=== PATIENT | female | born 1940 | race Caucasian/White ===

== ENCOUNTER 2018-11-27 15:13 | Outpatient (CLI) | payer MEDICARE, OTHER ==
[~2018-11-27 15:13] MED LIST: ASPI-1265 PO; ATOR10TA70 PO; BENA20TA82 PO; BUSP5TAB3 PO; CARV-50 PO; OMEP40CA37 PO; SYN0.088T PO
== END 2018-11-27 23:59 | disposition home or self-care (01) ==
LOC: VAS 15:13
PROVIDERS: ATTEND Family Medicine
DX: I82.432 Acute embolism and thrombosis of left popliteal vein (principal); I82.442 Acute embolism and thrombosis of left tibial vein; I82.492 Acute embolism and thrombosis of other specified deep vein of left lower extremity; I10 Essential (primary) hypertension
CPT/HCPCS: 93971

== ENCOUNTER 2022-05-19 11:30 | Outpatient (CLI) | payer MEDICARE, OTHER ==
[~2022-05-19 11:30] MED LIST changes: +OMEP40CA21 PO; -OMEP40CA37 PO
== END 2022-05-19 23:59 | disposition home or self-care (01) ==
LOC: VAS 11:30
PROVIDERS: ATTEND Family Medicine
DX: I82.563 Chronic embolism and thrombosis of calf muscular vein, bilateral (principal); M79.89 Other specified soft tissue disorders; R05.1 Acute cough
CPT/HCPCS: 93970